=== PATIENT | male | born 1970 | race Caucasian/White ===

== ENCOUNTER 2019-03-30 12:59 | Emergency (ER) | payer OTHER | END 2019-03-30 14:16 | disposition home or self-care (01) | LOC: EDH 12:59 | DX: S22.32XA Fracture of one rib, left side, initial encounter for closed fracture (principal); Z98.52 Vasectomy status; X58.XXXA Exposure to other specified factors, initial encounter; Y93.89 Activity, other specified; Y92.89 Other specified places as the place of occurrence of the external cause; Y99.8 Other external cause status | CPT/HCPCS: 71100 ==